=== PATIENT | male | born 1985 | race African-American/Black ===

== ENCOUNTER 2019-02-20 22:07 | Emergency (ER) | payer OTHER ==
[2019-02-21] MEDS: METHYLPREDNISOLONE 125 MG INJ IV (01:46)
[2019-02-21] MEDS: IPRATROPIUM (NEB) 0.5 MG/2.5 ML AMP HHN (01:56)
[2019-02-21] MEDS: ALBUTEROL 0.083% (NEB) 2.5 MG/3 ML AMP HHN (01:56)
== END 2019-02-21 03:39 | disposition home or self-care (01) ==
LOC: FTE 22:07
DX: J45.901 Unspecified asthma with (acute) exacerbation (principal)
CPT/HCPCS: 71046; 93005; 94664; 96374; 99284-25